=== PATIENT | female | born 1995 | race African-American/Black ===

== ENCOUNTER 2024-04-20 08:49 | Inpatient (IN) ==
[2024-04-20] MEDS ORDERED: OXYTOCIN 30 UNITS/NSS 30 UNITS/500 ML BAG IV PRN (11:18)
[2024-04-20] MEDS ORDERED: LIDOCAINE 1% LOCAL 20 ML VIAL INFIL PRN (11:18)
[2024-04-20] MEDS ORDERED: CALCIUM CARBONATE 500 MG CHEWABLE TAB PO PRN (11:18)
--- NOTE | 2024-04-20 11:32 | History & Physical Report ---
Date of Service April 20, 2024 Assessment & Plan (1) Normal labor: Plan: IUP at 39 4/7 weeks in early labor will start PCN now and plan to AROM to facilitate dilation epidural analgesia when requested anticipate vaginal Admission and Anticipated Discharge Date Admission Date: April 20, 2024 History of Present Illness Primary Care Provider: NO PCP Patient is a 28 yo female EDC 04/23/24 who presents at 39 4/7 weeks with regular ctns since 0200. she lost a mucus plug but not SPROM or blood show. contractions are occuring every 5 minutes. initial cervical exam was 1-2cm/80/-1 and after walking for 2 hours , she is now 3cm/90/-1 and since she has made cervical change and is painful will admit her. GBS (+) complicated by late transfer of care from [facility]. Her course has been uncomplicated. Allergies Allergy/AdvReac Type Severity Reaction Status Date / Time No Known Allergies Allergy Verified 04/17/24 13:18 Home Medications Medication Instructions Recorded Confirmed Type folic acid PO 03/25/24 04/17/24 History multivitamin with iron PO 03/25/24 04/17/24 History Patient History Medical History (Updated 04/20/24 @ 11:35 by Laila Hannah MD, FACOG) Varicella vaccination Surgical History (Updated 03/25/24 @ 13:22 by Angelina Barnard RN) No pertinent past surgical history Family History (Updated 03/25/24 @ 13:15 by Angelina Barnard RN) Denies family history of Ovarian cancer Breast cancer Colorectal cancer Social History (Updated 03/25/24 @ 13:21 by Angelina Barnard RN) Smoking Status: Never smoker Second Hand Exposure: No; Do You Dip or Chew Tobacco: No; Hx Alcohol Use: No Hx Substance Use: No Preferred Language: Slovak Communication Ability: Effective Wedding Florist Required: No Beliefs That Will Affect Care: Adventist marital status: marital status details: Bo (31) [phone] Current Living Situation: Spouse Current Living Situation Comment: Lives with spouse current occupational status: unemployed Feels Safe at Home: Yes Assistive Devices: None Review of Systems All systems reviewed & are unremarkable except as noted in HPI & below Physical Exam Constitutional: WD/WN, vitals as above Psychiatric: A+Ox3, euthymic affect Genitourinary: OB Exam Abdomen: + vertex and + regular contractions ( q 5 minutes) Manual OB Exam: + cervical dilation 3 cm, + cervical effacement 90% and + station -1 OB Exam Monitor Tracing: + external FHT monitor used, + external uterine monitor used, + category I and + normal FHT variability Results & Data Vital Signs (Past 12 Hours) Vital Signs Temp Pulse Resp BP 04/20/24 09:01 88 121/79 04/20/24 08:59 20 04/20/24 08:59 97.9 F 20 Coding Level of Care Code 16690 INT INP/OBS CARE 1/40MIN Diagnoses Normal labor O80; Z37.9
[2024-04-20 12:09] LABS: Hematocrit (blood only) 35.3 % (37.0-47.0); Hemoglobin 12.2 g/dl (12.0-16.0); Mean Corpuscular Hemoglobin 28.7 pg (25.0-34.0); Mean Corpuscular Hgb Conc 34.6 g/dL (32.0-36.0); Mean Corpuscular Volume 83.1 fL (80.0-100.0); Mean Platelet Volume 10.1 fL (9.4-12.4); Nucleated RBC # (auto) 0.02 K/uL (0.00-0.12); Nucleated RBC % (auto) 0.2 %; Platelet Count 249 K/uL (130-400); RDW Standard Deviation 44.6 fL (36.4-46.3); Red Blood Count 4.25 M/uL (4.20-5.40); White Blood Count 9.08 K/ul (4.8-10.8)
--- NOTE | 2024-04-20 12:15 | Anesthesiology Consultation ---
Date of Service April 20, 2024 Assessment & Plan Chart Review Chart Review: Acceptable Risk for Surgery and Patient NOT seen in Pre Admission Testing Consults Requested none ASA ASA2 Proposed Anesthesia Anesthesia Type: Labor Epidural and CSE History Height/Weight Weight: 80.966 kg Allergies Allergy/AdvReac Type Severity Reaction Status Date / Time No Known Allergies Allergy Verified 04/17/24 13:18 Medications Home Medications Medication Instructions Recorded Confirmed Last Taken folic acid PO 03/25/24 04/17/24 Unknown multivitamin with iron PO 03/25/24 04/17/24 Unknown Past Medical History Medical History Varicella vaccination anemia GERD obese Exercise / Class Metabolic Activity II 4-5 Yardwork/Stairs/Walk up hill Past Family History Family History Denies family history of Ovarian cancer Breast cancer Colorectal cancer Past Surgical History Surgical History No pertinent past surgical history Past Anesthesia History No Hx of Anesthesia Complications and No Family Hx of Anesthesia Complications History of PONV No Hx of PONV and No Hx of Motion Sickness Social History Smoking Status: Never smoker Do You Dip or Chew Tobacco: No Hx Alcohol Use: No Hx Substance Use: No Physical Exam Vital Signs Last Vital Signs Temp 36.6 C 04/20/24 08:59 Pulse 88 04/20/24 09:01 Resp 20 04/20/24 08:59 BP 121/79 04/20/24 09:01 Testing Laboratory Results 04/20/24 11:44
[2024-04-20] MEDS: PENICILLIN GK 6 MU in DEXTROSE 5% 250 ML IV ONE (12:27)
[2024-04-20] MEDS: LACTATED RINGER'S 1,000 ML IV PRN (12:27)
--- NOTE | 2024-04-20 14:34 | Labor Progress Brief Note ---
Date of Service April 20, 2024 Subjective Reason For Note: Routine Evaluation contractions still 5 minutes apart FHT's cat 1 mild variables with some ctns cervix exam; 3-4cm/100/-1 AROM but not sure if successful may need pitocin for better contraction pattern if AROM not successful Review of Systems All systems reviewed & are unremarkable except as noted in HPI & below Assessment & Plan Admission and Anticipated Discharge Date Admission Date: April 20, 2024 Results & Data Vital Signs (Past 12 Hours) Vital Signs Temp Pulse Resp BP 04/20/24 12:21 82 04/20/24 12:21 124/81 04/20/24 12:20 16 04/20/24 12:20 16 04/20/24 09:01 88 121/79 04/20/24 08:59 20 04/20/24 08:59 97.9 F 20 Coding Level of Care Code 48750 SUB INP/OBS CARE 03/16MIN
[2024-04-20] MEDS: PENICILLIN GK 3 MU in DEXTROSE 5% 100 ML IV PRN (16:07)
[2024-04-20] MEDS: OXYTOCIN 30 UNITS/NSS 30 UNITS/500 ML BAG IV PRN (18:33)
[2024-04-20] MEDS: fentANYL 2 MCG/ML BUPIVacaine 0.125%-NSS 100ML BAG ONE (20:10)
[2024-04-20] MEDS: BUPIVACAINE 0.25% PF 30 ML VIAL ONE (20:12)
[2024-04-20] MEDS: SODIUM CHLORIDE 0.9% PF INJ 10 ML VIAL ONE (20:12)
[2024-04-20] MEDS: LIDOCAINE 2%/EPINEPHRINE 1:200,000 20 ML PF ONE (20:12)
[2024-04-20] MEDS: fentaNYL citrate PF 100 MCG/2 ML VIAL ONE (20:12)
[2024-04-20] MEDS ORDERED: ePHEDrine sulfate 50 MG/ML AMP IV PRN (20:19)
[2024-04-20] MEDS ORDERED: BUPIVACAINE 0.25% PF 30 ML VIAL EPI PRN (20:19)
[2024-04-20] MEDS ORDERED: fentaNYL citrate PF 100 MCG/2 ML VIAL EPI PRN (20:19)
[2024-04-20] MEDS ORDERED: NALOXONE HCL 1 MG in SODIUM CHLORIDE 0.9% 1,000 ML IV PRN (20:19)
[2024-04-20] MEDS ORDERED: diphenhydrAMINE 50 MG/ML VIAL IV PRN (20:19)
[2024-04-20] MEDS ORDERED: LIDOCAINE 2% MPF LOCAL 5 ML VIAL EPI PRN (20:19)
[2024-04-20] MEDS ORDERED: NALBUPHINE HCL INJ 10 MG/ML AMP IV PRN (20:19)
[2024-04-20] MEDS ORDERED: SODIUM CHLORIDE 0.9% PF INJ 10 ML VIAL EPI PRN (20:19)
[2024-04-20] MEDS ORDERED: fentANYL 2 MCG/ML BUPIVacaine 0.125%-NSS 100ML BAG EPI PRN (20:19)
[2024-04-20] MEDS ORDERED: NALOXONE HCL 0.4 MG/1 ML VIAL/CARP IV PRN (20:19)
[2024-04-20] MEDS ORDERED: ROPIVACAINE 0.5% PF 5 MG/ML 20 ML VIAL EPI PRN (20:19)
[2024-04-20] MEDS: SODIUM CHLORIDE 0.9% PF INJ 10 ML VIAL EPI STA (23:08)
[2024-04-20] MEDS: LIDOCAINE 2%/EPINEPHRINE 1:200,000 20 ML PF EPI STA (23:08)
[2024-04-20] MEDS: fentaNYL citrate PF 100 MCG/2 ML VIAL EPI STA (23:08)
[2024-04-20] MEDS: ePHEDrine sulfate 50 MG/ML AMP ONE (23:08)
[2024-04-20] MEDS: BUPIVACAINE 0.25% PF 30 ML VIAL EPI STA (23:08)
[2024-04-21] MEDS ORDERED: oxyCODONE/ACETAMINOPHEN 5mg/325mg TAB PO PRN (00:10)
[2024-04-21] MEDS ORDERED: OXYTOCIN 30 UNITS/NSS 30 UNITS/500 ML BAG IV PRN (00:10)
[2024-04-21] MEDS ORDERED: ACETAMINOPHEN 325 MG TAB PO PRN (00:10)
[2024-04-21] MEDS ORDERED: HYDROCORTISONE ACETATE 25 MG SUPP PR PRN (00:10)
--- NOTE | 2024-04-21 00:37 | Delivery Summary ---
Vaginal Delivery Summary Date of Service April 21, 2024 Vaginal Delivery Summary and 2nd Degree LAC Patient is a 28-year-old 1 P0 female who presented in early labor at 39- 4/7 weeks. She made slow progress, membranes were ruptured for a scant amount of meconium stained fluid. She received effective epidural analgesia and Pitocin augmentation of her contractions. She progressed to full dilation with the urge to push. She pushed effectively over intact perineum for delivery of a viable male . After the head was delivered a loose nuchal cord was reduced and the rest the infant delivered without maternal effort. He was placed on the mother's abdomen for further tension and drying. After 1 minute, the cord was clamped and cut. After cord blood was obtained, the placenta was expressed intact with a three-vessel cord. bleeding was controlled with dilute Pitocin and fundal massage. A left sulcal tear and second-degree perineal laceration was repaired with 2-0 chromic in usual fashion. Mother and infant were doing well after delivery. QBL was 383 mL. [facility] Vaginal Delivery Charge Delivery Type Details: and 2nd Degree LAC
[2024-04-21] MEDS: IBUPROFEN 600 MG TAB PO PRN (01:17)
[2024-04-21] MEDS: ACETAMINOPHEN 325 MG TAB PO PRN (01:18)
[2024-04-21] MEDS: DIPHTHER/TETAN/PERTUS Vaccine (Tdap, Adol/Adult) 0.5mL IM ONE (03:52)
--- NOTE | 2024-04-21 06:56 | Anesthesia Procedure Note ---
Date of Service April 21, 2024 Anesthesia Post Epidural Note Vital Signs Vital Signs: Temp Pulse Resp BP Pulse Ox O2 Del Method 36.8 C 95 H 18 124/74 98 Room Air 04/21/24 03:30 04/21/24 03:30 04/21/24 03:30 04/21/24 03:30 04/21/24 03:30 04/21/24 03:30 Pain Intensity Bilateral Abdomen: Pain Intensity: 7 Notes Mental Status: alert / awake / arousable Nausea / Vomiting: adequately controlled Pain: adequately controlled Airway Patency, RR, SpO2: stable & adequate BP & HR: stable & adequate Hydration State: stable & adequate Neuraxial Anesthesia: was administered and sensory block is resolving Anesthetic Complications: no major complications apparent and Pt Satisfied with anesthetic care Epidural: Removed without complications and With tip intact
[2024-04-21] MEDS: DOCUSATE SODIUM 100 MG CAP PO SCH (07:52)
[2024-04-21] MEDS: PRENATAL VITAMIN 1 TAB PO SCH (07:52)
--- NOTE | 2024-04-21 10:57 | Obstetrical Progress Note ---
Date of Service April 21, 2024 Assessment & Plan (1) Encounter for care and examination after delivery: satisfactory recovery continue current care plan Subjective Ambulation: ambulating normally Voiding: no voiding problems Passing Gas:: Yes Diet Tolerance:: regular diet Lochia:: Small Feeding Type:: breast feeding doing well this morning- minimal cramping Review of Systems All systems reviewed & are unremarkable except as noted in HPI & below Physical Exam Constitutional WD/WN, vitals as above Psychiatric A+Ox3, euthymic affect Genitourinary OB Exam Abdomen: + fundal height Fundus: + firm and + relation to umbilicus (@U) Results & Data Vital Signs (Past 12 Hours) Vital Signs Temp Pulse Pulse Resp BP BP Pulse Ox 04/21/24 07:15 97.5 F L 94 H 18 115/72 04/21/24 03:30 98.2 F 95 H 18 124/74 98 04/21/24 02:19 112 H 104/57 L 04/21/24 02:04 102 H 108/85 04/21/24 01:49 93 H 122/65 04/21/24 01:34 93 H 116/61 04/21/24 01:19 108 H 124/57 L 04/21/24 01:04 99 H 133/71 04/21/24 00:49 93 H 129/71 04/21/24 00:34 96 H 129/72 04/21/24 00:19 91 H 128/69 04/21/24 00:09 99 H 99 04/21/24 00:08 97 H 129/70 04/21/24 00:04 101 H 100 04/20/24 23:59 99 04/20/24 23:59 97 H 04/20/24 23:54 99 04/20/24 23:54 102 H 04/20/24 23:49 99 04/20/24 23:49 104 H 04/20/24 23:44 100 04/20/24 23:44 110 H 04/20/24 23:39 99 04/20/24 23:39 99 H 04/20/24 23:34 99 04/20/24 23:34 98 H 04/20/24 23:30 20 04/20/24 23:30 20 04/20/24 23:29 100 04/20/24 23:29 97 H 04/20/24 23:27 101 H 04/20/24 23:27 130/75 04/20/24 23:24 99 04/20/24 23:24 109 H 04/20/24 23:19 99 04/20/24 23:19 102 H 04/20/24 23:14 99 04/20/24 23:14 100 H 04/20/24 23:12 101 H 04/20/24 23:12 119/69 04/20/24 23:09 99 04/20/24 23:09 98 H 04/20/24 23:04 99 04/20/24 23:04 97 H 04/20/24 23:00 18 04/20/24 23:00 99.1 F 18 04/20/24 22:59 98 04/20/24 22:59 96 H 04/20/24 22:57 96 H 04/20/24 22:57 119/68 O2 Del Method 04/21/24 07:15 Room Air 04/21/24 03:30 Room Air 04/21/24 02:19 04/21/24 02:04 04/21/24 01:49 04/21/24 01:34 04/21/24 01:19 04/21/24 01:04 04/21/24 00:49 04/21/24 00:34 04/21/24 00:19 04/21/24 00:09 04/21/24 00:08 04/21/24 00:04 04/20/24 23:59 04/20/24 23:59 04/20/24 23:54 04/20/24 23:54 04/20/24 23:49 04/20/24 23:49 04/20/24 23:44 04/20/24 23:44 04/20/24 23:39 04/20/24 23:39 04/20/24 23:34 04/20/24 23:34 04/20/24 23:30 04/20/24 23:30 04/20/24 23:29 04/20/24 23:29 04/20/24 23:27 04/20/24 23:27 04/20/24 23:24 04/20/24 23:24 04/20/24 23:19 04/20/24 23:19 04/20/24 23:14 04/20/24 23:14 04/20/24 23:12 04/20/24 23:12 04/20/24 23:09 04/20/24 23:09 04/20/24 23:04 04/20/24 23:04 04/20/24 23:00 04/20/24 23:00 04/20/24 22:59 04/20/24 22:59 04/20/24 22:57 04/20/24 22:57
[2024-04-21] MEDS: BENZOCAINE 20% SPRY 85 APPLN/85 GM CAN EXT PRN (20:13)
[2024-04-22 01:30] VITALS: O2SAT 98
[2024-04-22 06:36] LABS: Hematocrit (blood only) 31.3 % (37.0-47.0); Hemoglobin 10.5 g/dl (12.0-16.0); Mean Corpuscular Hemoglobin 29.1 pg (25.0-34.0); Mean Corpuscular Hgb Conc 33.5 g/dL (32.0-36.0); Mean Corpuscular Volume 86.7 fL (80.0-100.0); Mean Platelet Volume 10.8 fL (9.4-12.4); Platelet Count 230 K/uL (130-400); RDW Coefficient of Variation 15.6 % (11.5-14.5); RDW Standard Deviation 49.3 fL (36.4-46.3); Red Blood Count 3.61 M/uL (4.20-5.40); White Blood Count 11.85 K/ul (4.8-10.8)
--- NOTE | 2024-04-22 06:43 | Obstetrical Progress Note ---
Date of Service April 22, 2024 Assessment & Plan (1) Encounter for care and examination after delivery: Plan: satisfactory recovery continue current care plan application development consultant today for help encourage ambulation as tolerated d/c home today, followup with Dr. Hannah in 6wks (2) Perineal laceration during delivery: (3) Difficulty of mother performing : Admission and Anticipated Discharge Date Admission Date: April 20, 2024 Supervising Physician Co-Signing Physician Notes Resident Physician Supervision Note: I was present with Dr. Marino during the history and exam. I discussed the case with the resident and agree with the findings and plan as documented in the note. Any exceptions or clarifications are listed here: [None] Documented By: Laila Hannah MD, FACOG Subjective 28yo s/p day 2: Ambulation: ambulating normally Voiding: no voiding problems Passing Gas:: Yes Diet Tolerance:: regular diet Lochia:: Small Feeding Type:: breast feeding, having some difficulty doing well this morning- minimal cramping Physical Exam Physical Exam: Constitutional: WD/WN, vitals as above Psychiatric: A+Ox3, euthymic but tired appearing Genitourinary: OB Exam Abdomen: + fundus firm at umbilicus Ext: no significant LE edema Results & Data Vital Signs (Past 12 Hours) Vital Signs Temp Pulse Resp BP Pulse Ox O2 Del Method 04/21/24 23:25 36.5 C 98 H 18 112/68 98 Room Air 04/21/24 20:15 37.5 C 88 18 122/74 99 Room Air Resident Activity Tracking Resident Involvement: Resident Care Provided Care Provided: Adult Hospital Medicine (2) Perineal laceration during delivery Perineal laceration degree: second degree Qualified Code(s): O70.1 - Second degree perineal laceration during delivery
[2024-04-22 09:17] VITALS: BP 113/75; PULSE 90; RESP 16; TEMP 97.9
[2024-04-22] MEDS ORDERED: bisacodyL 5 MG TABEC PO SCH (20:00)
[2024-04-23] MEDS ORDERED: bisacodyL 10 MG SUPP PR PRN (00:10)
== END 2024-04-22 15:30 | disposition home or self-care (01) | DRG 807 ==
LOC: OPB 08:49 → 4S1 08:51 → 4E2 04-21 03:03